=== PATIENT | female | born 1995 | race Caucasian/White ===

== ENCOUNTER 2025-04-24 05:31 | Inpatient (IN) | payer MEDICAID, OTHER, SELFPAY ==
[2025-04-23 10:55] LABS: Hematocrit 34.0 % (34.9-44.5); Hemoglobin 11.3 g/dL (12.0-15.5); Platelet Count 247 10x3/uL (150-450)
[2025-04-23 11:33] LABS: Syphilis Antibody Index 0.05 S/CO (<1.00 Non-Reactive)
[2025-04-23 11:34] LABS: Hep B Surf Ag Non-Reactive S/CO (NonReactive)
[2025-04-24 06:07] VITALS: BMI 34.7
[2025-04-24] MEDS ORDERED: Carboprost 250 MCG/ML AMP IM PRN (06:08)
[2025-04-24] MEDS ORDERED: Oxytocin 30 units/NS 500 ML 500 ML IV SCH (06:08)
[2025-04-24] MEDS ORDERED: Diphenoxylate HCl/Atropine Tablet PO PRN (06:08)
[2025-04-24] MEDS ORDERED: Bicitra 30 ML UDCUP PO PRN (06:08)
[2025-04-24] MEDS ORDERED: Methylergonovine 0.2 MG/ML VIAL IM PRN (06:08)
[2025-04-24] MEDS ORDERED: Tranexamic Acid 1,000 MG/10 ML VIAL IVP PRN (06:08)
[2025-04-24] MEDS ORDERED: hydrALAZINE 20 MG/ML VIAL SLOW IVP PRN ×2 (06:08→12:56)
[2025-04-24] MEDS: Famotidine/PF 20 mg/2ml Vial SLOW IVP PRN (08:26)
[2025-04-24] MEDS: Ondansetron PF 4 MG/2 ML Vial IVP PRN (10:46)
[2025-04-24] MEDS: Oxytocin 10 UNITS/ML VIAL ONE (10:48)
[2025-04-24] MEDS: PHENYLEPHRINE-NS 100 MCG/ML 10 ML SYRINGE ONE (10:48)
[2025-04-24] MEDS: Ondansetron PF 4 MG/2 ML Vial ONE (10:48)
[2025-04-24] MEDS ORDERED: Ondansetron PF 4 MG/2 ML Vial IVP PRN (12:56)
[2025-04-24] MEDS ORDERED: Simethicone Chewable 80 MG TAB PO PRN (12:56)
[2025-04-24] MEDS ORDERED: Bisacodyl 10 MG SUPP PR PRN (12:56)
[2025-04-24] MEDS ORDERED: Lanolin Ointment 7 GM TUBE TOP PRN (12:56)
[2025-04-24] MEDS ORDERED: diphenhydrAMINE 25 MG CAP PO PRN (12:56)
[2025-04-24] MEDS: Ferrous Sulfate 325 MG TAB PO SCH ×2 (14:53→23:34)
[2025-04-24] MEDS: Ketorolac Tromethamine 30 MG (1 mL) VIAL IVP SCH (17:08)
[2025-04-24] MEDS ORDERED: HYDROcodone/Acetaminophen 5/325 mg Tablet PO PRN (21:00)
[2025-04-24] MEDS ORDERED: Meperidine HCl/PF 25 MG (1 mL) VIAL IM PRN (21:00)
[2025-04-25 04:27] LABS: Hematocrit 29.9 % (34.9-44.5); Hemoglobin 9.9 g/dL (12.0-15.5); Mean Corpuscular Hemoglobin 28.4 pg (27.0-33.0); Mean Corpuscular Volume 85.9 fL (81.6-98.3); Platelet Count 218 10x3/uL (150-450); Red Blood Cell (RBC) Count 3.48 10x6/uL (3.90-5.03); White Blood Cell (WBC) Count 10.14 10x3/uL (3.5-10.5)
[2025-04-25] MEDS: Boostrix 0.5 ML (Tdap) VIAL (>/=7 yrs of age) IM ONE (07:46)
[2025-04-25] MEDS: Ibuprofen 800 MG TAB PO SCH (13:46)
[2025-04-25] MEDS: HYDROcodone/Acetaminophen 5/325 mg Tablet PO PRN (15:53)
[2025-04-26 14:57] VITALS: BP 104/59; TEMP 98.6
== END 2025-04-26 17:00 | disposition home or self-care (01) | DRG 788 ==
LOC: CSHLD 05:31 → CSHPP 12:40
PROVIDERS: ADMIT Family Medicine; ATTEND Family Medicine
PROC: 10D00Z1 Extraction of Products of Conception, Low, Open Approach (ICD-10-PCS; principal; 2025-04-24)
DX: O34.211 Maternal care for low transverse scar from previous cesarean delivery (principal); Z37.0 Single live birth; Z3A.39 39 weeks gestation of pregnancy
CPT/HCPCS: 36415; 51702; 85014; 85018; 85027; 85049; 86780; 86850; 86900; 86901; 87340; J1885; J2274; J2590; J7120